=== PATIENT | male | born 1955 | race Caucasian/White ===

== ENCOUNTER 2021-07-05 17:41 | Emergency (ER) | payer MEDICARE, OTHER ==
[~2021-07-05] VITALS: Ht 177.8 cm; Wt 104.3 kg
[2021-07-05 17:46] VITALS: BP 142/83
== END 2021-07-05 18:47 | disposition left against medical advice (07) ==
LOC: ER 17:47
DX: R50.9 Fever, unspecified (principal); R42 Dizziness and giddiness; R11.0 Nausea; Z53.21 Procedure and treatment not carried out due to patient leaving prior to being seen by health care provider